=== PATIENT | female | born 1980 | race Caucasian/White ===

== ENCOUNTER 2016-08-17 16:15 | Emergency (ER) | payer OTHER ==
--- NOTE | ~2016-08-17 | CR181 ---
[facility] A Service of [facility] & [facility] RADIOLOGY TEXT RESULTS PATIENT: SARAH BLACK LOCATION: [facility] : 76 UNIT #: [id number] AGE: [address]: Mirella Robertson SEX: F ORDER DR: [id number] [facility] [address] [place], [place] [address] [id number] MR#: [id number] Acc #: [id number] NAME: SARAH BLACK. : 1980 SEX: F STUDY DATE/TIME: 08/17/2016 18:17 UNIT: [facility] ROOM: STUDY DESCRIPTION: CR Lumbar Spine 2 or 3 Views Attending Physician: Mirella Robertson Pa-C Ordering Physician: [facility] Primary Care Physician: Colt Michael M.D. MEDICAL IMAGING REPORT This report is preliminary unless electronic signature is present EXAM Lumbar series 08/17/2016 INDICATIONS 36-year-old male with back pain, left-sided lower back pain since yesterday, hurt back moving boxes. TECHNIQUE Three views of the lumbar spine compared 12/04/2014 FINDINGS Vertebral body heights and alignment preserved. Minimal spurring at L2. Mild degenerative disc disease at L4-5 and L5-S1 and mild facet arthropathy in the lower lumbar levels. IMPRESSION 1. Mild degenerative change but no acute fracture or malalignment. Dictated by... Jorge Lerma M.D. THIS IS AN ELECTRONICALLY VERIFIED REPORT Jorge Lerma M.D. at 08/18/2016 2:31 PM Vladislav TD: 08/18/2016 07:35 JOB #: [id number] MEDICAL IMAGING REPORT Page 1 of 1 COPY
[~2016-08-17 16:15] MED LIST: AMOXICILLIN500 M1 PO; BACTRIM DS TABL1 TA1 PO; BENAZEPRIL; BENZONATATE; DICLOFENAC; FLEXERIL10 MG PO; GLUCOPHAGE XR500 MG; HCTZ; LEVOTHYROXINE75 MCG; LODINE; LORTAB 5/500 TA1 TA2 PO; MEDROL4 MG/DOSE- PO; NAPROXEN SODIU500 MG PO; SYNTHROID; TARKA; TOBRAMYCIN SULFA5 M1 OP; VICODIN 5/1 TAB 5/50 PO
[2016-08-17 18:36] LABS: URINE SOURCE CLEAN CATCH
[2016-08-17 18:42] LABS: URINE APPEARANCE TURBID; URINE BLOOD NEG (NEG); URINE COLOR DK YELLOW; URINE GLUCOSE >1000 MG/DL (NEG); URINE KETONE TRACE (NEG); URINE LEUKOCYTE ESTERASE 1+ (NEG); URINE NITRATE NEG (NEG); URINE PROTEIN 2+ (NEG); URINE SPECIFIC GRAVITY 1.038 (1.003-1.035)
[2016-08-17 18:46] LABS: CULTURE INDICATED? YES; URINE BACTERIA AUWI 2+ (NEGATIVE); URINE SQUAMOUS EPITHELIAL CELL MOD /[HPF]; UWBCS1 AUWI 50-100 (0-5)
[2016-08-17 18:50] LABS: URINE BILIRUBIN NEG (NEG)
== END 2016-08-17 19:30 | disposition home or self-care (01) ==
LOC: CED 16:15 → CFTX 16:15
PROVIDERS: Physician Assistant
DX: S39.012A Strain of muscle, fascia and tendon of lower back, initial encounter (principal); N30.00 Acute cystitis without hematuria; I10 Essential (primary) hypertension; E03.9 Hypothyroidism, unspecified; X50.0XXA Overexertion from strenuous movement or load, initial encounter; Y92.9 Unspecified place or not applicable
CPT/HCPCS: 72100; 81003; 82947; 84703; 87086; 99283

== ENCOUNTER 2016-08-19 13:58 | Emergency (ER) | payer OTHER | END 2016-08-19 14:58 | disposition home or self-care (01) | LOC: CED 13:58 → CFTX 13:58 → CED 14:40 → CFTX 14:58 | DX: M54.16 Radiculopathy, lumbar region (principal); I10 Essential (primary) hypertension; E03.9 Hypothyroidism, unspecified | CPT/HCPCS: 96372; 99283; J1885 ==

== ENCOUNTER 2016-08-31 14:20 | Emergency (ER) | payer OTHER ==
--- NOTE | ~2016-08-31 | CT98 ---
[facility] A Service of [facility] & [facility] RADIOLOGY TEXT RESULTS PATIENT: SARAH BLACK LOCATION: [facility] : 78 UNIT #: [id number] AGE: [address]: Mirella Robertson SEX: F ORDER DR: [id number] [facility] [address] [place], [place] [address] [id number] E MR#: [id number] Acc #: [id number] NAME: SARAH BLACK. : 1980 SEX: F STUDY DATE/TIME: 08/31/2016 16:07 UNIT: [facility] ROOM: STUDY DESCRIPTION: CT Lumbar Spine Wo Cont Attending Physician: Mirella Robertson Pa-C Ordering Physician: [facility] Primary Care Physician: Colt Michael M.D. MEDICAL IMAGING REPORT This report is preliminary unless electronic signature is present EXAM CT lumbar spine 08/31/16. HISTORY Low back pain for [address] exam was performed with one or more of the following radiation dose reduction techniques: automatic exposure control, adjustment of mA and/or kV according to patient size, and iterative reconstruction. FINDINGS CT of the lumbar spine performed. Bone and soft tissue windows reviewed. Sagittal and coronal reconstructions performed. The study is severely limited due to the patient's morbid obesity and resulting CT artifact. COMPARISON Comparison to a study dated 04/30/2010. It is somewhat unclear if the patient has rudimentary ribs at T12 or L1. For the purposes of this dictation, 5 lumbar-type vertebral segments are presumed. The lowest intervertebral disc space is labeled L5-S1. This may be a transitional S1 segment. Visualized portions of liver, spleen, adrenal glands, kidneys, alimentary canal, aorta unremarkable. There is mild levoscoliosis of the lumbar spine are unchanged from 2010. Vertebral body heights are normal. Alignment in the lateral projection is normal. There is mild L4-L5 disc space narrowing and probably unchanged moderate L5-S1 disc space narrowing. Assessment of the L4-L5 and L5-S1 levels is severely limited due to CT artifact. No fracture or traumatic malalignment. Facet joint relationships normal. [facility] A Service of [facility] RADIOLOGY TEXT RESULTS PATIENT: SARAH BLACK LOCATION: [facility] : 78 UNIT #: [id number] AGE: [address]: Mirella Robertson SEX: F ORDER DR: [id number]: Small posterior central disc osteophyte complex. Stable. There is mild narrowing of the anterior central thecal space. Relationship to cord unclear on basis of this examination. No change from prior study. T12-L1: No significant disc bulge or herniation. Spinal canal diameter normal. Neural foramina patent without evidence of exiting nerve impingement. L1-L2: No significant disc bulge or herniation. Spinal canal diameter appears normal. The neural foramina appear patent without evidence of exiting nerve impingement. L2-L3: Question mild bilateral posterolateral disc bulges extending toward the inferior aspects of the bilateral neural foramina, more pronounced on the left than right. Similar appearance on prior study. There is no spinal stenosis. There is no definite significant foraminal narrowing. L3-L4: Significant beam-hardening artifact related to the patient's size. There is probably a posterior concentric disc bulge similar to 2011. There does not appear to be significant spinal canal narrowing. There is probably mild bilateral foraminal narrowing. L4-L5: Assessment severely degraded by CT artifact. I cannot exclude posterior central and left paracentral disc protrusion with potentially significant mass effect on the thecal sac. The appearance could to a significant degree be artifactual. Consider assessment with open MRI if the patient is a candidate. There are facet degenerative changes bilaterally left greater than right and there is at least moderate left foraminal narrowing suggested. The appearance raises the possibility of exiting left nerve irritation or shahla impingement. L5-S1: No significant disc bulge or herniation suggested. Neural foramina appear patent without evidence of exiting nerve impingement. IMPRESSION 1. This examination is severely degraded secondary to CT artifact related to the patient's very large body habitus. In addition, it is somewhat unclear of the exact number of lumbar vertebral segments. Please see numbering scheme utilized above. Given the limitations of this examination, if the patient has ongoing symptoms, further imaging preferably with open MRI would be strongly recommended. Any intervention based upon this examination should take the above described numbering scheme into close consideration. 2. No fracture or traumatic malalignment. Stable mild levoscoliosis. 3. Multilevel relatively mild degenerative change. See [id number] description in body of report above. Imaging at the L4- L5, L5-S1 levels is severely degraded. I am concerned for a potential STS. [facility] A Service of [facility] RADIOLOGY TEXT RESULTS PATIENT: SARAH BLACK LOCATION: [facility] : 78 UNIT #: [id number] AGE: [address]: Mirella Robertson SEX: F ORDER DR: posterior central and left paracentral disc protrusion at the C4-C5 level more pronounced than in 2011. Degree of mass effect on thecal sac unclear. There is probably some narrowing of the left lateral recess and in conjunction with facet degenerative change. There is at least moderate left L4-L5 foraminal narrowing with potential exiting left L4 nerve irritation or shahla impingement. To what extent the above described findings could be artifactual due to limitations of the study is unclear. 4. See remainder findings in body of report. Dictated by... Amilcar Thompson M.D. THIS IS AN ELECTRONICALLY VERIFIED REPORT Amilcar Thompson M.D. at 09/01/2016 5:40 PM REGINA/syeda TD: 09/01/2016 07:27 JOB #: [id number] MEDICAL IMAGING REPORT Page 1 of 1 COPY
== END 2016-08-31 18:05 | disposition home or self-care (01) ==
LOC: CED 14:20 → CFTX 14:20
DX: M54.5 Low back pain (principal); I10 Essential (primary) hypertension; G43.909 Migraine, unspecified, not intractable, without status migrainosus; E03.9 Hypothyroidism, unspecified; Z90.49 Acquired absence of other specified parts of digestive tract
CPT/HCPCS: 72131; 84703; 99284

== ENCOUNTER 2016-09-02 17:30 | Emergency (ER) | payer OTHER | END 2016-09-02 18:05 | disposition home or self-care (01) | LOC: CED 17:30 → CFTX 17:30 → CED 17:57 → CFTX 17:57 | DX: M54.9 Dorsalgia, unspecified (principal); I10 Essential (primary) hypertension; E03.9 Hypothyroidism, unspecified; G43.909 Migraine, unspecified, not intractable, without status migrainosus; Z90.49 Acquired absence of other specified parts of digestive tract | CPT/HCPCS: 99283 ==